=== PATIENT | male | born 1945 | race Caucasian/White ===

== ENCOUNTER 2020-02-28 16:34 | Outpatient (CLI) | payer MEDICARE, OTHER | END 2020-02-28 16:35 | disposition home or self-care (01) | LOC: COV 16:34 | PROVIDERS: ATTEND Family Medicine | DX: R53.83 Other fatigue (principal); R19.7 Diarrhea, unspecified; Z20.828 Contact with and (suspected) exposure to other viral communicable diseases ==

== ENCOUNTER 2020-04-03 16:53 | Outpatient (CLI) | payer MEDICARE, OTHER | END 2020-04-03 16:54 | disposition home or self-care (01) | LOC: COV 16:53 | PROVIDERS: ATTEND Family Medicine | DX: R05 Cough (principal); R06.02 Shortness of breath; M79.10 Myalgia, unspecified site; R53.83 Other fatigue; J02.9 Acute pharyngitis, unspecified; R19.7 Diarrhea, unspecified; R09.81 Nasal congestion; Z20.828 Contact with and (suspected) exposure to other viral communicable diseases ==

== ENCOUNTER 2020-12-11 13:09 | Outpatient (CLI) | payer MEDICARE, OTHER | END 2020-12-11 13:10 | disposition home or self-care (01) | LOC: LAB.S 13:09 | PROVIDERS: ATTEND Internal Medicine | DX: I48.91 Unspecified atrial fibrillation (principal); Z79.01 Long term (current) use of anticoagulants | CPT/HCPCS: 36416; 85610 ==

== ENCOUNTER 2021-01-04 11:47 | Outpatient (CLI) | payer MEDICARE, OTHER | END 2021-01-04 11:48 | disposition home or self-care (01) | LOC: LAB.S 11:47 | DX: I48.91 Unspecified atrial fibrillation (principal); Z79.01 Long term (current) use of anticoagulants | CPT/HCPCS: 36416; 85610 ==

== ENCOUNTER 2021-01-20 12:41 | Outpatient (CLI) | payer MEDICARE, OTHER | END 2021-01-20 12:42 | disposition home or self-care (01) | LOC: LAB.S 12:41 | DX: Z79.01 Long term (current) use of anticoagulants (principal); I48.91 Unspecified atrial fibrillation | CPT/HCPCS: 36416; 85610 ==

== ENCOUNTER 2021-02-20 14:28 | Outpatient (CLI) | payer MEDICARE, OTHER | END 2021-02-20 14:29 | disposition home or self-care (01) | LOC: LAB.S 14:28 | PROVIDERS: ATTEND Pharmacist | DX: Z79.01 Long term (current) use of anticoagulants (principal); I48.91 Unspecified atrial fibrillation | CPT/HCPCS: 36416; 85610 ==

== ENCOUNTER 2021-05-03 13:58 | Outpatient (CLI) | payer MEDICARE, OTHER | END 2021-05-03 13:59 | disposition home or self-care (01) | LOC: LAB.S 13:58 | PROVIDERS: ATTEND Pharmacist | DX: Z79.01 Long term (current) use of anticoagulants (principal); I48.91 Unspecified atrial fibrillation | CPT/HCPCS: 36416; 85610 ==

== ENCOUNTER 2021-06-03 11:02 | Outpatient (CLI) | payer MEDICARE, OTHER ==
[2021-06-03 15:28] LABS: BASOPHILS % (AUTO) 0.4 %; EOSINOPHILS # (AUTO) 0.3 10^3/uL (0.0-0.7); HCT - HEMATOCRIT 40.5 % (42.0-52.0); HGB - HEMOGLOBIN 13.1 g/dL (14.0-18.0); LYMPHOCYTES # (AUTO) 2.1 10^3/uL (1.5-3.5); LYMPHOCYTES % (AUTO) 28.4 %; MEAN CORPUSCULAR HEMOGLOBIN 29.8 pg (27.0-31.0); MEAN CORPUSCULAR HGB CONC 32.3 g/dL (32.0-36.0); MEAN CORPUSCULAR VOLUME 92.3 fL (80.0-94.0); MEAN PLATELET VOLUME 10.7 fL (7.4-11.4); MONOCYTES # (AUTO) 0.8 10^3/uL (0.0-1.0); MONOCYTES % (AUTO) 10.3 %; NEUTROPHILS # (AUTO) 4.1 10^3/uL (1.5-6.6); NEUTROPHILS % (AUTO) 56.4 %; PLT - PLATELET COUNT 260 10^3/uL (130-450); RED BLOOD COUNT 4.39 10^6/uL (4.70-6.10); RED CELL DISTRIBUTION WIDTH 13.1 % (12.0-15.0); WHITE BLOOD COUNT 7.3 x10^3/uL (4.8-10.8)
[2021-06-03 15:40] LABS: ESTIMATED AVERAGE GLUCOSE 186 mg/dL (70-100); HEMOGLOBIN A1c% 8.1 % (4.27-6.07)
[2021-06-03 15:56] LABS: ALBUMIN 4.1 g/dL (3.2-5.5); ALBUMIN/GLOBULIN RATIO 1.1 (1.0-2.2); ALKALINE PHOSPHATASE 77 IU/L (42-121); ALT ALANINE AMINOTRANSFERASE 26 IU/L (10-60); AST ASPARTATE AMINOTRANSFERASE 27 IU/L (10-42); BILIRUBIN,TOTAL 0.9 mg/dL (0.2-1.0); BUN - BLOOD UREA NITROGEN 26 mg/dL (6-20); CALCIUM 8.9 mg/dL (8.5-10.3); CARBON DIOXIDE - CO2 26 mmol/L (21-32); CHLORIDE 100 mmol/L (101-111); CHOL/HDL RATIO 4.9 (<5.0); CHOLESTEROL 142 mg/dL; CREATININE 1.3 mg/dL (0.6-1.2); GFR - MDRD 54 (>89); GLUCOSE 213 mg/dL (70-100); HDL CHOLESTEROL 29 mg/dL; LDL CHOLESTEROL,CALCULATED 43 mg/dL; LDL/HDL RATIO 1.5 (<3.6); POTASSIUM 3.8 mmol/L (3.5-5.0); SODIUM 138 mmol/L (135-145); TOTAL PROTEIN 7.8 g/dL (6.7-8.2); TRIGLYCERIDES 351 mg/dL; VLDL CHOLESTEROL 70 mg/dL
== END 2021-06-03 11:03 | disposition home or self-care (01) ==
LOC: LAB.S 11:02
PROVIDERS: ATTEND Pharmacist
DX: Z79.01 Long term (current) use of anticoagulants (principal); I48.91 Unspecified atrial fibrillation; R39.198 Other difficulties with micturition; E78.5 Hyperlipidemia, unspecified; E11.22 Type 2 diabetes mellitus with diabetic chronic kidney disease; N18.2 Chronic kidney disease, stage 2 (mild)
CPT/HCPCS: 36415; 80053; 80061; 82043; 82570; 83036; 83721; 84153; 85025; 85610

== ENCOUNTER 2021-06-14 08:00 | Outpatient (CLI) | payer MEDICARE, OTHER ==
[2021-06-14 14:48] LABS: CREATININE,URINE 154.2 mg/dL
== END 2021-06-14 23:59 ==
LOC: LAB.R 08:00
PROVIDERS: ATTEND Internal Medicine
DX: E78.5 Hyperlipidemia, unspecified (principal)
CPT/HCPCS: 82043; 82570

== ENCOUNTER 2021-06-17 11:15 | Outpatient (CLI) | payer MEDICARE, OTHER | END 2021-06-17 11:16 | disposition home or self-care (01) | LOC: LAB.S 11:15 | PROVIDERS: ATTEND Pharmacist | DX: Z79.01 Long term (current) use of anticoagulants (principal); I48.91 Unspecified atrial fibrillation | CPT/HCPCS: 36416; 85610 ==

== ENCOUNTER 2021-07-01 12:41 | Outpatient (CLI) | payer MEDICARE, OTHER | END 2021-07-01 12:42 | disposition home or self-care (01) | LOC: LAB.S 12:41 | PROVIDERS: ATTEND Pharmacist | DX: Z79.01 Long term (current) use of anticoagulants (principal); I48.91 Unspecified atrial fibrillation | CPT/HCPCS: 36416; 85610 ==

== ENCOUNTER 2021-07-28 11:51 | Outpatient (CLI) | payer MEDICARE, OTHER | END 2021-07-28 11:52 | disposition home or self-care (01) | LOC: LAB.S 11:51 | PROVIDERS: ATTEND Pharmacist | DX: Z79.01 Long term (current) use of anticoagulants (principal); I48.91 Unspecified atrial fibrillation | CPT/HCPCS: 36416; 85610 ==

== ENCOUNTER 2021-08-17 09:59 | Outpatient (CLI) | payer MEDICARE, OTHER | END 2021-08-17 10:00 | disposition home or self-care (01) | LOC: LAB.S 09:59 | PROVIDERS: ATTEND Family Medicine | DX: I48.91 Unspecified atrial fibrillation (principal); Z79.01 Long term (current) use of anticoagulants; Z86.79 Personal history of other diseases of the circulatory system | CPT/HCPCS: 36416; 85610 ==

== ENCOUNTER 2021-09-09 10:50 | Outpatient (CLI) | payer MEDICARE, OTHER | END 2021-09-09 10:51 | disposition home or self-care (01) | LOC: LAB.S 10:50 | PROVIDERS: ATTEND Family Medicine | DX: Z79.01 Long term (current) use of anticoagulants (principal); I48.91 Unspecified atrial fibrillation | CPT/HCPCS: 36416; 85610 ==

== ENCOUNTER 2021-09-30 11:33 | Outpatient (CLI) | payer MEDICARE, OTHER | END 2021-09-30 11:34 | disposition home or self-care (01) | LOC: LAB.S 11:33 | PROVIDERS: ATTEND Family Medicine | DX: Z79.01 Long term (current) use of anticoagulants (principal); I48.91 Unspecified atrial fibrillation | CPT/HCPCS: 36416; 85610 ==

== ENCOUNTER 2021-10-04 13:56 | Emergency (ER) | payer MEDICARE, OTHER ==
--- NOTE | 2021-10-04 14:14 | ED Physician Documentation ---
PD HPI HEAD INJURY - Stated complaint Stated Complaint: GLF - Chief complaint Chief Complaint: Trauma Hd/Nk - History obtained from History obtained from: Patient - Additional information Additional information: 76-year-old gentleman on warfarin had a trip and fall over a bag of mulch landing forward on [place] hitting his face and head. He also has scrapes on his left palm and forearm. He did not know the date of his last tetanus shot but per the [place] vaccine registry it was December 2015. No loss of consciousness. Review of Systems Constitutional: denies: Fever, Chills Ears: reports: Reviewed and negative Nose: reports: Reviewed and negative Throat: reports: Reviewed and negative Cardiac: reports: Reviewed and negative PD PAST MEDICAL HISTORY - Allergies Allergies/Adverse Reactions: Allergies Allergy/AdvReac Type Severity Reaction Status Date / Time No Known Drug Allergies Allergy Verified 10/04/21 14:04 PD ED PE NORMAL - Vitals Vital signs reviewed: Yes - General General: Alert and oriented X 3, No acute distress - HEENT HEENT: PERRL, EOMI, Other (There is a scrape/abrasion in the left lateral eyebrow. Some tenderness over the left zygoma. No other facial bony tenderness.) - Neck Neck: Supple, no meningeal sign, No bony TTP - Back Back: No CVA TTP, No spinal TTP - Extremities Extremities: Other (Small scrape on the left palm, nontender, small scrape on the left medial Forearm nontender) - Neuro Neuro: Alert and oriented X 3, Normal speech Eye Opening: Spontaneous Motor: Obeys Commands Verbal: Oriented GCS Score: 15 - Psych Psych: Normal mood, Normal affect Results - Vitals Vitals: Vital Signs - 24 hr 10/04/21 10/04/21 14:00 14:59 Temperature 36.2 C L Heart Rate 68 61 Respiratory 16 14 Rate Blood Pressure 123/67 132/66 H O2 Saturation 99 99 Oxygen O2 Source Room air - Labs Labs: Laboratory Tests 10/04/21 14:15 INR (Fingerstick) 2.7 H - Rads (name of study) CT of the head shows no acute intracranial abnormality. 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 Radiology: EMP read contemporaneously CT of the face is without evidence of trauma Radiology: EMP read contemporaneously Departure - Departure Disposition: 01 Home, Self Care Clinical Impression: Adequate anticoagulation on anticoagulant therapy Head injury Qualifiers: Encounter type: initial encounter Qualified Code(s): S09.90XA - Unspecified injury of head, initial encounter Facial contusion Qualifiers: Encounter type: initial encounter Qualified Code(s): S00.83XA - Contusion of other part of head, initial encounter Condition: Stable Record reviewed to determine appropriate education?: Yes Instructions: ED Head Injury Closed Comments: Your INR today was 2.7, in the desirable range. No specific change to your anticoagulation is necessary at this juncture. Return if you develop headache or other new or concerning signs.
[2021-10-04 15:00] VITALS: BP 132/66
--- NOTE | 2021-10-04 15:04 | CT Report ---
PROCEDURE: HEAD WO INDICATIONS: Facial and head injury TECHNIQUE: Noncontrast 4.5 mm thick angled axial sections acquired from the foramen magnum to the vertex. For r adiation dose reduction, the following was used: automated exposure control, adjustment of mA and/or kV according to patient size. COMPARISON: None. FINDINGS: Image quality: Excellent. CSF spaces: Basal cisterns are patent. No extra-axial fluid collections. Ventricles are normal in size and shape. Brain: There is old right occipital infarct with encephalomalacia. Moderate cerebral volume loss and periventricular white matter chronic small vessel ischemic changes. No midline shift. No intracrani al masses or hemorrhage. Salter-white matter interface is normal. Skull and face: Calvarium and visualized facial bones are intact, without suspicious lesions. Sinuses: Visualized sinuses and mastoids are clear. IMPRESSION: 1. No acute intracranial abnormalities. 2. 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 Reviewed by: Ngozi Carrington MD on 10/04/2021 2:03 PM AKDT Approved by: Ngozi Carrington MD on 10/04/2021 2:03 PM AKDT Station ID: [id number]
--- NOTE | 2021-10-04 15:13 | CT Report ---
PROCEDURE: MAXILLOFACIAL WO INDICATIONS: Facial and head injury TECHNIQUE: Noncontrast 1.5 mm thick axial images acquired from the mandible through the frontal sinuses, with co kristi and sagittal reformatting. For radiation dose reduction, the following was used: automated ex posure control, adjustment of mA and/or kV according to patient size. COMPARISON: CT Head without, 10/04/2021. FINDINGS: Image quality: Excellent. Bones and teeth: Orbital guevara are intact. Sinus guevara show no fracture or deformity. Nasal bones and septum are intact. Visualized portions of the mandible demonstrate no fractures or subluxation. Zygomatic arches are intact. Pterygoid plates are intact. Visualized portions of the skull base an d auditory canals are intact. Sinuses: Paranasal sinuses are aerated, without fluid levels, mucosal thickening, or mucoceles. Mas toid air cells are aerated. Soft tissues: No edema, masses, or fluid collections. No enlarged lymph nodes. No soft tissue lace rations or debris. Vascular: Visualized vascular structures appear normal in the absence of contrast. Bony vascular fo ramina and canals are intact. IMPRESSION: No facial bone fractures. Reviewed by: Ngozi Carrington MD on 10/04/2021 2:12 PM AKSOFIA Approved by: Ngozi Carrington MD on 10/04/2021 2:12 PM AKDT Station ID: [id number]
== END 2021-10-04 15:18 | disposition home or self-care (01) ==
LOC: ED 13:56
DX: S00.212A Abrasion of left eyelid and periocular area, initial encounter (principal); S00.83XA Contusion of other part of head, initial encounter; S09.90XA Unspecified injury of head, initial encounter; W01.198A Fall on same level from slipping, tripping and stumbling with subsequent striking against other object, initial encounter; Z79.01 Long term (current) use of anticoagulants
CPT/HCPCS: 85610; 99282; 99284

== ENCOUNTER 2021-10-21 10:22 | Outpatient (CLI) | payer MEDICARE, OTHER | END 2021-10-21 10:23 | disposition home or self-care (01) | LOC: LAB.S 10:22 | PROVIDERS: ATTEND Family Medicine | DX: Z79.01 Long term (current) use of anticoagulants (principal); I48.91 Unspecified atrial fibrillation | CPT/HCPCS: 36416; 85610 ==

== ENCOUNTER 2021-11-18 09:49 | Outpatient (CLI) | payer MEDICARE, OTHER | END 2021-11-18 09:50 | disposition home or self-care (01) | LOC: LAB.S 09:49 | PROVIDERS: ATTEND Family Medicine | DX: I48.91 Unspecified atrial fibrillation (principal); Z79.01 Long term (current) use of anticoagulants | CPT/HCPCS: 36416; 85610 ==

== ENCOUNTER 2021-12-26 18:21 | Emergency (ER) | payer MEDICARE, OTHER ==
[2021-12-26] MEDS ORDERED: SODIUM CHLORIDE 0.9% 1,000 ML IV STA (18:34)
[2021-12-26] MEDS ORDERED: HYDROmorphone 1 MG/ML CARPUJECT IVP STA (18:34)
--- NOTE | 2021-12-26 18:36 | ED Physician Documentation ---
PD HPI ABD PAIN - Stated complaint Stated Complaint: LT ABDOMINAL PX - Chief complaint Chief Complaint: Abd Pain - History obtained from History obtained from: Patient - Additional information Additional information: 76-year-old gentleman with history of renal colic presents with a day or 2 of left flank and left lower quadrant pain consistent with prior episodes of renal colic. He has had several stones in the past but never needed stone retrieval or lithotripsy. Denies fevers with this, no urinary complaints or nausea. He has been somewhat constipated but did have bowel movement today. Review of Systems Ten Systems: 10 systems reviewed and negative Constitutional: reports: Chills. denies: Fever Nose: denies: Rhinorrhea / runny nose, Congestion Cardiac: denies: Chest pain / pressure, Palpitations Respiratory: denies: Dyspnea, Cough GI: reports: Abdominal Pain. denies: Nausea, Vomiting PD PAST MEDICAL HISTORY - Present Medications Home Medications: Ambulatory Orders Medication Instructions Recorded Confirmed Ammonium Lactate 1 applic TOP DAILY 12/26/21 12/26/21 Apixaban [Eliquis] 5 mg ORAL BID 12/26/21 12/26/21 Atorvastatin Calcium 40 mg PO HS 12/26/21 12/26/21 Fluoxetine HCl [Prozac] 20 mg PO DAILY 12/26/21 12/26/21 Gabapentin [Neurontin] 300 mg PO TID 12/26/21 12/26/21 Metformin HCl [Metformin ER 500 mg PO DAILY 12/26/21 12/26/21 Osmotic] Oxycodone HCl/Acetaminophen 1 - 2 each PO Q6H PRN #14 tablet 12/26/21 [Percocet 5-325 mg Tablet] Tamsulosin [Flomax] 0.4 mg PO DAILY #14 cap 12/26/21 - Allergies Allergies/Adverse Reactions: Allergies Allergy/AdvReac Type Severity Reaction Status Date / Time No Known Drug Allergies Allergy Verified 12/26/21 18:28 PD ED PE NORMAL - Vitals Vital signs reviewed: Yes - General General: Alert and oriented X 3, No acute distress - HEENT HEENT: PERRL, EOMI - Neck Neck: Supple, no meningeal sign, No bony TTP - Cardiac Cardiac: RRR, No murmur - Respiratory Respiratory: No respiratory distress, Clear bilaterally - Abdomen Abdomen: Non tender - Derm Derm: Normal color, Warm and dry - Extremities Extremities: No edema, No calf tenderness / cord - Neuro Neuro: Alert and oriented X 3, Normal speech Results - Vitals Vitals: Vital Signs - 24 hr 12/26/21 12/26/21 12/26/21 18:26 18:53 19:15 Temperature 36.7 C Heart Rate 74 73 70 Respiratory 16 18 16 Rate Blood Pressure 161/62 H 148/70 H 156/74 H O2 Saturation 96 95 99 Oxygen O2 Source Room air - Labs Labs: Laboratory Tests 12/26/21 12/26/21 12/26/21 18:41 18:41 18:41 WBC 12.7 H RBC 4.47 L Hgb 13.3 L Hct 41.8 L MCV 93.5 MCH 29.8 MCHC 31.8 L RDW 13.2 Plt Count 236 MPV 10.5 Neut # (Auto) Not Reportable Lymph # (Auto) Not Reportable [place] # (Auto) Not Reportable Eos # (Auto) Not Reportable Baso # (Auto) Not Reportable Absolute Nucleated RBC Not Reportable Total Counted 100 Band Neuts % (Manual) 0 Reactive Lymphs % (Man) 3 Abnorm Lymph % (Manual) 0 Nucleated RBC % Not Reportable Neutrophils # (Manual) 9.8 H Lymphocytes # (Manual) 2.0 Monocytes # (Manual) 0.9 Eosinophils # (Manual) 0.0 Basophils # (Manual) 0.0 Differential Comment MANUAL DIFFERENTIAL Manual Slide Review Indicated Platelet Estimate NORMAL (130-450,000) Platelet Morphology NORMAL APPEARANCE RBC Morph Micro Appear NORMAL APPEARANCE PT 12.9 H INR 1.2 Sodium 135 Potassium 4.4 Chloride 99 L Carbon Dioxide 27 Anion Gap 9.0 BUN 29 H Creatinine 1.6 H Estimated GFR (MDRD) 42 L Glucose 212 H Calcium 9.7 Total Bilirubin 1.4 H AST 20 ALT 21 Alkaline Phosphatase 64 Total Protein 7.8 Albumin 4.4 Globulin 3.4 Albumin/Globulin Ratio 1.3 Urine Color Urine Clarity Urine pH Ur Specific [place] Urine Protein Urine Glucose (UA) Urine Ketones Urine Occult Blood Urine Nitrite Urine Bilirubin Urine Urobilinogen Ur Leukocyte Esterase Urine RBC Urine WBC Ur Squamous Epith Cells Urine Bacteria Ur Microscopic Review Urine Culture Comments 12/26/21 19:31 WBC RBC Hgb Hct MCV MCH MCHC RDW Plt Count MPV Neut # (Auto) Lymph # (Auto) [place] # (Auto) Eos # (Auto) Baso # (Auto) Absolute Nucleated RBC Total Counted Band Neuts % (Manual) Reactive Lymphs % (Man) Abnorm Lymph % (Manual) Nucleated RBC % Neutrophils # (Manual) Lymphocytes # (Manual) Monocytes # (Manual) Eosinophils # (Manual) Basophils # (Manual) Differential Comment Manual Slide Review Platelet Estimate Platelet Morphology RBC Morph Micro Appear PT INR Sodium Potassium Chloride Carbon Dioxide Anion Gap BUN Creatinine Estimated GFR (MDRD) Glucose Calcium Total Bilirubin AST ALT Alkaline Phosphatase Total Protein Albumin Globulin Albumin/Globulin Ratio Urine Color YELLOW Urine Clarity HAZY Urine pH 5.5 Ur Specific [place] 1.020 Urine Protein TRACE Urine Glucose (UA) 100 H Urine Ketones NEGATIVE Urine Occult Blood LARGE H Urine Nitrite NEGATIVE Urine Bilirubin NEGATIVE Urine Urobilinogen 0.2 (NORMAL) Ur Leukocyte Esterase NEGATIVE Urine RBC TNTC H Urine WBC 4-5 Ur Squamous Epith Cells NONE SEEN Urine Bacteria Few Ur Microscopic Review INDICATED Urine Culture Comments NOT INDICATED PD MEDICAL DECISION MAKING - ED course ED course: 76-year-old gentleman with complicated medical history including stem cell transplant for Sjogren's disease and anticoagulation presents with renal colic and is found to have a 7 mm left ureteral stone without evidence of UTI. He was pain-free after medication here. He was given a copy of his CAT scan on CD to aid in follow-up as it is more likely than not that he will need urologic procedure. Departure - Departure Disposition: 01 Home, Self Care Clinical Impression: Renal colic Condition: Good Record reviewed to determine appropriate education?: Yes Instructions: ED Stone Renal W Colic Prescriptions: Tamsulosin [Flomax] 0.4 mg PO DAILY #14 cap Oxycodone HCl/Acetaminophen [Percocet 5-325 mg Tablet] 1 - 2 each PO Q6H PRN #14 tablet PRN Reason: pain Comments: You are seen today for an obstructing 7 mm left ureteral stone. As discussed, I think you will probably need to follow-up with urologist given the size. We are giving you some pain medication and other medication to help with pass faster in the meantime. Given your complicated previous medical history, I would recommend calling [facility] first for consideration for intervention down there, you could also talk with your primary care physician about a more local urologist, but I do wonder given your previous health issues if a community urologist would handle your case. I sent your prescriptions electronically to [facility] in [place]. I am prescribing a short course of narcotic pain medication for you. These are potentially dangerous and addictive medications that should be used carefully. These medications may constipate you. Take an hazd-bfu-aeyozat stool softener (docusate) twice daily with plenty of water while taking these medications. If you go 24 hours without a bowel movement, take hktu-whn-[id number] miralax, per package instructions. Do not drink or drive while taking these medications. If you received narcotic or sedating medications while in the emergency department, do not drive for 24 hours. Store this medication in a safe, secure place and out of reach of children. It is a violation of federal law to give or sell this medication to another person or to use in a manner other than prescribed. The ED will not refill narcotic prescriptions, including prescriptions lost or stolen. To dispose of unwanted medications: 1. [facility] at [address] in [place] has a medication drop box. They accept prescription medications (in pill form) Monday through Monday 9:00 a.m. to 5:00 p.m. 2. [facility] accepts prescription medications (in pill form only) for disposal year round. Call for more information. 3. Contact the [facility] for the next [facility] sponsored prescription dr erendira collection event. , [phone], or [phone]; Note that many narcotic pain relievers also contain Tylenol/acetaminophen. Please ensure that your total dose of acetaminophen from all sources does not exceed 3 g (3000 mg) per day.
[2021-12-26 18:54] LABS: BASOPHILS % (AUTO) 0.2 %; EOSINOPHILS % (AUTO) 1.3 %; HCT - HEMATOCRIT 41.8 % (42.0-52.0); HGB - HEMOGLOBIN 13.3 g/dL (14.0-18.0); LYMPHOCYTES % (AUTO) 14.3 %; MEAN CORPUSCULAR HEMOGLOBIN 29.8 pg (27.0-31.0); MEAN CORPUSCULAR HGB CONC 31.8 g/dL (32.0-36.0); MEAN CORPUSCULAR VOLUME 93.5 fL (80.0-94.0); MEAN PLATELET VOLUME 10.5 fL (7.4-11.4); MONOCYTES % (AUTO) 13.2 %; NEUTROPHILS % (AUTO) 70.6 %; PLT - PLATELET COUNT 236 10^3/uL (130-450); RED BLOOD COUNT 4.47 10^6/uL (4.70-6.10); RED CELL DISTRIBUTION WIDTH 13.2 % (12.0-15.0); WHITE BLOOD COUNT 12.7 x10^3/uL (4.8-10.8)
[2021-12-26 18:55] LABS: SLIDE REVIEW? Indicated
[2021-12-26 18:56] LABS: ABNORMAL LYMPHS % (MANUAL) 0 %; BAND NEUTROPHILS % (MANUAL) 0 %; INR 1.2 (0.8-1.2); PT - PROTHROMBIN TIME 12.9 secs (9.9-12.6)
[2021-12-26 19:01] LABS: ALBUMIN 4.4 g/dL (3.2-5.5); ALBUMIN/GLOBULIN RATIO 1.3 (1.0-2.2); BILIRUBIN,TOTAL 1.4 mg/dL (0.2-1.0); CALCIUM 9.7 mg/dL (8.5-10.3); CREATININE 1.6 mg/dL (0.6-1.2); POTASSIUM 4.4 mmol/L (3.5-5.0); TOTAL PROTEIN 7.8 g/dL (6.7-8.2)
[2021-12-26 19:14] LABS: DIFFERENTIAL COMMENT MANUAL DIFFERENTIAL; LYMPHOCYTES % (MANUAL) 13 %; MONOCYTES # (MANUAL) 0.9 10^3/uL (0.0-1.0); NEUTROPHILS # (MANUAL) 9.8 10^3/uL (1.5-6.6); PLATELET ESTIMATE, MANUAL NORMAL (130-450,000) (NORMAL); PLATELET MORPHOLOGY NORMAL APPEARANCE (NORMAL); RBC MORPHOLOGY (MULTIPLE) NORMAL APPEARANCE (NORMAL); REACTIVE LYMPHS % (MANUAL) 3 %
[2021-12-26 19:37] LABS: BILIRUBIN,URINE NEGATIVE (NEGATIVE); GLUCOSE, URINE (UA) 100 mg/dL (NEGATIVE); KETONES,URINE (UA) NEGATIVE (NEGATIVE); LEUKOCYTE ESTERASE, URINE NEGATIVE (NEGATIVE); NITRITE,URINE NEGATIVE (NEGATIVE); OCCULT BLOOD,URINE LARGE (NEGATIVE); PH,URINE 5.5 PH (5.0-7.5); PROTEIN,URINE TRACE mg/dL (NEGATIVE); UROBILINOGEN,URINE 0.2 (NORMAL) E.U./dL (NORMAL)
[2021-12-26 19:40] LABS: CLARITY,URINE HAZY (CLEAR)
[2021-12-26 19:47] LABS: BACTERIA,URINE Few /HPF (None Seen); RBC,URINE TNTC /HPF (0-5); SQUAMOUS EPITHELIAL CELL,UR NONE SEEN (<= Few)
--- NOTE | 2021-12-26 20:02 | CT Report ---
PROCEDURE: Abdomen/Pelvis WO INDICATIONS: L flank pain TECHNIQUE: Noncontrast 5 mm thick sections acquired from the diaphragms to the symphysis. 5 mm coronal and sagi ttal reformats were then performed. For radiation dose reduction, the following was used: automated exposure control, adjustment of mA and/or kV according to patient size. COMPARISON: None. FINDINGS: Image quality: Excellent. ABDOMEN: Lung bases: Lung bases are clear. Heart size is normal. Solid organs: Liver and spleen are normal in size. Gallbladder is surgically absent Pancreas is no rmal in contours. No adrenal nodules. Punctate nonobstructing right renal stones are present measuri ng up to 3 mm. No hydronephrosis. No periureteral or perinephric stranding. Right ureter is normal in course and caliber. There is moderate left hydroureteronephrosis secondary to an obstructing 7 mm mi d left ureteral stone which measures approximately 750 Hounsfield units. No perinephric or periureter al stranding. Tiny punctate left renal stone is also noted measuring approximately 1 to 2 mm in size. No urinary bladder stones seen. Peritoneum and bowel: Unenhanced bowel loops demonstrate normal wall thickness and caliber. No free fluid or air. Nodes and vessels: No retroperitoneal or mesenteric adenopathy by size criteria. Aorta and inferior vena cava are normal in caliber. Atherosclerosis. Miscellaneous: No ventral hernias. PELVIS: Genitourinary: Bladder wall thickness is normal. Miscellaneous: No inguinal hernias or adenopathy. Bones: No suspicious bony lesions. No acute vertebral body compression fractures. IMPRESSION: 1. Obstructing 7 mm mid left ureteral stone with associated moderate left hydroureteronephrosis. 2. There are small nonobstructing right renal stones measuring up to 3 mm. No hydronephrosis. 3. Atherosclerosis. 4. Status post cholecystectomy. Reviewed by: Morales Allen MD on 12/26/2021 8:01 PM PDT Approved by: Moralse Allen MD on 12/26/2021 8:01 PM PDT Station ID: [id number]
[2021-12-26 20:40] VITALS: BP 153/66
[2021-12-26] MEDS ORDERED: oxyCODONE/ACET 5/325 Prepack 4 PO STA (20:40)
== END 2021-12-26 20:38 | disposition home or self-care (01) ==
LOC: ED 18:21
DX: N23 Unspecified renal colic (principal)
CPT/HCPCS: 36415; 74176; 80053; 81001; 85025; 85610; 96374; 99284; J1170; 81003; 87086

== ENCOUNTER 2022-07-04 14:33 | Outpatient (CLI) | payer MEDICARE, OTHER | END 2022-07-04 14:34 | disposition home or self-care (01) | LOC: LAB 14:33 | PROVIDERS: ATTEND Student in an Organized Health Care Education/Training Program | DX: Z86.010 Personal history of colon polyps (principal); Z20.822 Contact with and (suspected) exposure to COVID-19 ==

== ENCOUNTER 2022-07-06 20:55 | Outpatient (CLI) | payer MEDICARE, OTHER | END 2022-07-06 20:56 | disposition EMS.NT | LOC: EMS 20:55 | DX: R68.83 Chills (without fever) (principal) ==

== ENCOUNTER 2023-03-08 23:18 | Emergency (ER) | payer MEDICARE, OTHER ==
--- NOTE | 2023-03-08 23:49 | ED Physician Documentation ---
PD HPI FOCAL NEURO - Stated complaint Stated Complaint: BLURRY VISION/CONFUSION/DIZZY - Chief complaint Chief Complaint: Neuro - History obtained from History obtained from: Patient, Family () - Additional information Additional information: 77yM with pmh cva p/w vision changes, weakness, imbalance, confusion starting tonight around 9:30pm. also with dysuria this morning per his report. otherwise had been feeling normal during the day, though he had a deep cleaning with his dentist that was "stressful". denies slurring of speech or other neuro deficit that she can note. PD PAST MEDICAL HISTORY - Past Medical History Cardiovascular: High cholesterol Respiratory: Other Neuro: CVA, Seizure disorder Endocrine/Autoimmune: Type 2 diabetes : Kidney stones HEENT: Other Derm: Other - Past Surgical History Past Surgical History: Yes General: Cholecystectomy - Present Medications Home Medications: Ambulatory Orders Medication Instructions Recorded Confirmed Apixaban [Eliquis] 5 mg ORAL BID 12/26/21 03/09/23 Atorvastatin Calcium 40 mg PO HS 12/26/21 03/09/23 Fluoxetine HCl [Prozac] 20 mg PO DAILY 12/26/21 03/09/23 Gabapentin [Neurontin] 300 mg PO TID 12/26/21 03/09/23 Metformin HCl [Metformin ER 1,000 mg PO DAILY 12/26/21 03/09/23 Osmotic] Cholecalciferol [Vitamin D3] 25 mcg PO DAILY 03/09/23 03/09/23 - Allergies Allergies/Adverse Reactions: Allergies Allergy/AdvReac Type Severity Reaction Status Date / Time No Known Drug Allergies Allergy Verified 03/08/23 23:39 - Social History Does the pt smoke?: No Smoking Status: Never smoker - Immunizations Immunizations are current?: Yes PD ED PE NORMAL - Vitals Vital signs reviewed: Yes - General General: Alert and oriented X 3, No acute distress, Well developed/nourished - HEENT HEENT: Atraumatic, PERRL, EOMI, Moist mucous membranes, Pharynx benign - Neck Neck: Supple, no meningeal sign - Cardiac Cardiac: RRR - Respiratory Respiratory: No respiratory distress, Clear bilaterally - Abdomen Abdomen: Non tender, Non distended - Back Back: No CVA TTP - Derm Derm: Normal color, Warm and dry - Neuro Neuro: No motor deficit, No sensory deficit - Psych Psych: Normal mood, Normal affect Results - Vitals Vitals: Vital Signs - 24 hr 03/08/23 03/09/23 03/09/23 23:36 00:24 00:51 Temperature 36.3 C L 36.7 C Heart Rate 68 59 L 63 Respiratory 17 17 16 Rate Blood Pressure 123/67 133/58 H 140/62 H O2 Saturation 98 98 100 Oxygen O2 Source Room air - EKG (time done) 0016 EKG releavant findings:: EKG personally interpreted by author of this note. Relevant findings are: Rate: Rate (enter#) (59) Rhythm: NSR [employer]: Normal Intervals: Normal [place] QRS: Normal Ischemia: Normal ST segments - Labs Labs: Laboratory Tests 03/09/23 03/09/23 03/09/23 00:09 00:09 00:09 WBC 8.0 RBC 4.06 L Hgb 12.0 L Hct 38.4 L MCV 94.6 H MCH 29.6 MCHC 31.3 L RDW 13.3 Plt Count 247 MPV 10.7 Neut # (Auto) 4.9 Lymph # (Auto) 1.8 [place] # (Auto) 1.0 Eos # (Auto) 0.3 Baso # (Auto) 0.0 Absolute Nucleated RBC 0.00 Nucleated RBC % 0.0 PT 13.3 H INR 1.2 Sodium 140 Potassium 4.0 Chloride 105 Carbon Dioxide 28 Anion Gap 7.0 BUN 32 H Creatinine 1.4 H Estimated GFR (MDRD) 49 L Glucose 124 H Calcium 9.3 Total Bilirubin 0.9 AST 21 ALT 25 Alkaline Phosphatase 71 Total Protein 7.4 Albumin 4.5 Globulin 2.9 Albumin/Globulin Ratio 1.6 Lipase 49 PD Medical Decision Making - ED course ED course: 77yM with PMH CVA 10 years ago with residual L visual field deficit, p/w blurry vision , confusion, imbalance, and word finding difficulty tonight starting around 9:30pm. NIHSS 0. Patient not a candidate for tPA given low NIHSS but we will go ahead and call code stroke given new onset imbalance within the window and prior history of CVA - possibility of [employer] pathology therefore will order CTA head/neck. Patient has worsening anemia on labwork, which he states he is aware of given recent labwork a couple weeks ago. Declined further workup including rectal exam, requesting to leave AMA. discussed high grade stenosis of R vertebral artery which may be responsible for his symptoms but patient does not want to wait for neurosurgeon consult and would rather leave AMA. Risks of leaving including , severe disability were discussed and LINDA Sam signed AMA witness form. Patient states he and his may go to ER for further workup. CD of images and labwork were provided for them. Departure - Departure Disposition: Against Medical Advice Clinical Impression: Vertebral artery stenosis, Imbalance, Confusion, Vision changes Condition: Serious Comments: You are leaving AGAINST MEDICAL ADVICE and need to see neurology and neurosurgery emergently. 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 [facility] and [facility] have these capabilities. You need to schedule outpatient MRI of the head and neck as well. Forms: PCP List
[2023-03-09 00:15] LABS: BASOPHILS % (AUTO) 0.4 %; EOSINOPHILS # (AUTO) 0.3 10^3/uL (0.0-0.7); EOSINOPHILS % (AUTO) 3.1 %; HCT - HEMATOCRIT 38.4 % (42.0-52.0); LYMPHOCYTES # (AUTO) 1.8 10^3/uL (1.5-3.5); LYMPHOCYTES % (AUTO) 21.9 %; MEAN CORPUSCULAR HEMOGLOBIN 29.6 pg (27.0-31.0); MEAN CORPUSCULAR HGB CONC 31.3 g/dL (32.0-36.0); MEAN CORPUSCULAR VOLUME 94.6 fL (80.0-94.0); MEAN PLATELET VOLUME 10.7 fL (7.4-11.4); MONOCYTES % (AUTO) 12.6 %; NEUTROPHILS # (AUTO) 4.9 10^3/uL (1.5-6.6); NEUTROPHILS % (AUTO) 61.7 %; PLT - PLATELET COUNT 247 10^3/uL (130-450); RED BLOOD COUNT 4.06 10^6/uL (4.70-6.10); RED CELL DISTRIBUTION WIDTH 13.3 % (12.0-15.0)
[2023-03-09 00:25] LABS: INR 1.2 (0.8-1.2); PT - PROTHROMBIN TIME 13.3 secs (9.9-12.6)
[2023-03-09 00:38] LABS: ALBUMIN 4.5 g/dL (3.2-5.5); ALBUMIN/GLOBULIN RATIO 1.6 (1.0-2.2); BILIRUBIN,TOTAL 0.9 mg/dL (0.2-1.0); CALCIUM 9.3 mg/dL (8.5-10.3); CREATININE 1.4 mg/dL (0.6-1.3); TOTAL PROTEIN 7.4 g/dL (6.4-8.9)
--- NOTE | 2023-03-09 01:12 | CT Report ---
PROCEDURE: Head W/O Stroke Protocol INDICATIONS: Neuro deficit, acute, stroke suspected TECHNIQUE: Noncontrast 4.5 mm thick angled axial sections acquired from the foramen magnum to the vertex, with c oronal reformats. For radiation dose reduction, the following was used: automated exposure control, adjustment of mA and/or kV according to patient size. COMPARISON: 10/04/2021. FINDINGS: Image quality: Excellent. CSF spaces: Basal cisterns are patent. No extra-axial fluid collections. Ventricles are normal in size and shape. Brain: No midline shift. No intracranial masses or hemorrhage. There is moderate cerebral and cere bellar volume loss related to patient's age. Moderate periventricular and deep white matter chronic s mall vessel ischemic changes are seen. Old right occipital infarction with encephalomalacia is seen. Salter-white matter interface is normal. Skull and face: Calvarium and visualized facial bones are intact, without suspicious lesions. Sinuses: Visualized sinuses and mastoids are clear. IMPRESSION: 1. No acute intracranial pathology. 2. No significant changes from previous study. This study fulfills neurological imaging criteria for inclusion or exclusion of acute stroke therapie s based on available published neurological imaging guidelines. Reviewed by: Jose Reese MD on 03/09/2023 1:11 AM PDT Approved by: Jose Reese MD on 03/09/2023 1:11 AM PDT Station ID: [id number]
--- NOTE | 2023-03-09 01:18 | CT Report ---
PROCEDURE: CT Angio Head/Neck INDICATIONS: stoke code TECHNIQUE: After the administration of intravenous contrast, 1 mm thick sections acquired from the aortic arch t hrough the [place]. 3-dimensional msyuvch-fmnbyvlis-ovjsilaxii (MIP) and/or volume renderin g reformats were acquired of the central intracranial vasculature and neck separately. For radiation dose reduction, the following was used: automated exposure control, adjustment of mA and/or kV acco rding to patient size. COMPARISON: CT of the head from the same date. FINDINGS: Image quality: Diagnostic. HEAD CT: CSF Spaces: Basal cisterns are patent. No extra-axial fluid collections. Ventricles are normal in size and shape. Brain: The brain is within normal limits for age and scanning technique. No area of abnormal intrac ranial enhancement is noted. Skull and face: Calvarium and visualized facial bones appear intact, without suspicious lesions. Sinuses: Visualized sinuses and mastoids are clear. HEAD CT ANGIOGRAPHY: Anterior circulation: Intracranial internal carotid arteries are normal in size and flow. The flow within the paired anterior cerebral arteries is normal and symmetric. The flow within the middle cer ebral arteries is normal and symmetric. The anterior communicating artery is seen. No aneurysms are seen. Posterior circulation: Visualized portions of the vertebral arteries demonstrate normal caliber, and join to form a normal appearing basilar artery. Flow within the posterior cerebral arteries is norm al and symmetric. No aneurysms are seen. NECK CT ANGIOGRAPHY: Carotid system: The great vessels demonstrate a conventional anatomy as they arise from the aortic a rch. The origins of the common carotid arteries appear patent. The common carotid arteries demonstr ate normal caliber and courses. The bifurcation regions are both widely patent. The internal caroti d arteries demonstrate normal calibers and courses. Posterior circulation: The origins of the vertebral arteries both appear widely patent. There is hig h-grade stenosis involving the V4 segment of distal right vertebral artery. Left vertebral artery is normal in size. They join to form a normal appearing basilar artery. Soft tissues: Visualized neck soft tissues demonstrate no suspicious abnormalities. Bones: No suspicious bony lesions. Visualized cervical spine appears normally aligned. IMPRESSION: 1. No CT evidence of acute intracranial abnormalities. No area of abnormal intracranial enhancement. 2. No hemodynamically significant stenosis or aneurysm is seen in the visualized intracranial circula tion. 3. No hemodynamically significant stenosis or aneurysm is seen in bilateral carotid arteries. 4. 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 The estimate of stenosis included in the report of the imaging study was calculated using the NASCET method Reviewed by: Jose Ferguson MD on 03/09/2023 1:17 AM PDT Approved by: Jose Ferguson MD on 03/09/2023 1:17 AM PDT Station ID: [id number]
[2023-03-09] MEDS ORDERED: iohexoL-300 100 ML VIAL IVP ONE (01:39)
[2023-03-09 01:54] VITALS: BP 147/65; O2SAT 99
[2023-03-09] MEDS ORDERED: APIXABAN 5 MG TABLET PO STA (02:13)
== END 2023-03-09 02:24 | disposition left against medical advice (07) ==
LOC: ED 23:18
DX: I65.01 Occlusion and stenosis of right vertebral artery (principal); H53.8 Other visual disturbances; R41.0 Disorientation, unspecified; R26.89 Other abnormalities of gait and mobility; R47.02 Dysphasia; I69.312 Visuospatial deficit and spatial neglect following cerebral infarction
CPT/HCPCS: 36415; 70450; 70496; 70498; 80053; 83690; 85025; 85610; 93005; 99284; A9270; Q9967

== ENCOUNTER 2023-07-29 16:49 | Outpatient (CLI) | payer MEDICARE, OTHER | END 2023-07-29 16:50 | disposition critical access hospital (66) | LOC: EMS 16:49 | DX: R53.1 Weakness (principal); R11.2 Nausea with vomiting, unspecified; R42 Dizziness and giddiness; W01.198A Fall on same level from slipping, tripping and stumbling with subsequent striking against other object, initial encounter; Y92.012 Bathroom of single-family (private) house as the place of occurrence of the external cause; R39.198 Other difficulties with micturition; Z79.01 Long term (current) use of anticoagulants; R50.9 Fever, unspecified; R09.89 Other specified symptoms and signs involving the circulatory and respiratory systems; R17 Unspecified jaundice | CPT/HCPCS: A0425; A0427 ==

== ENCOUNTER 2023-07-29 17:12 | Emergency (ER) | payer MEDICARE, OTHER ==
[2023-07-29 17:25] LABS: BASOPHILS % (AUTO) 0.2 %; EOSINOPHILS % (AUTO) 0.1 %; HCT - HEMATOCRIT 38.3 % (42.0-52.0); HGB - HEMOGLOBIN 12.4 g/dL (14.0-18.0); MEAN CORPUSCULAR HEMOGLOBIN 29.5 pg (27.0-31.0); MEAN CORPUSCULAR HGB CONC 32.4 g/dL (32.0-36.0); MEAN CORPUSCULAR VOLUME 91.2 fL (80.0-94.0); MEAN PLATELET VOLUME 10.3 fL (7.4-11.4); NEUTROPHILS % (AUTO) 74.2 %; PLT - PLATELET COUNT 238 10^3/uL (130-450); RED CELL DISTRIBUTION WIDTH 13.2 % (12.0-15.0); WHITE BLOOD COUNT 19.1 x10^3/uL (4.8-10.8)
[2023-07-29 17:30] LABS: ABNORMAL LYMPHS % (MANUAL) 0 %
[2023-07-29 17:39] LABS: ALBUMIN 4.1 g/dL (3.2-5.5); ALBUMIN/GLOBULIN RATIO 1.2 (1.0-2.2); ALKALINE PHOSPHATASE 65 IU/L (42-121); ALT ALANINE AMINOTRANSFERASE 18 IU/L (10-60); AST ASPARTATE AMINOTRANSFERASE 15 IU/L (10-42); BILIRUBIN,TOTAL 3.6 mg/dL (0.2-1.0); BUN - BLOOD UREA NITROGEN 27 mg/dL (6-20); CALCIUM 9.3 mg/dL (8.5-10.3); CARBON DIOXIDE - CO2 25 mmol/L (21-32); CHLORIDE 96 mmol/L (101-111); CREATININE 1.6 mg/dL (0.6-1.3); GFR - MDRD 42 (>89); GLUCOSE 268 mg/dL (74-104); POTASSIUM 4.2 mmol/L (3.5-4.5); SODIUM 131 mmol/L (135-145); TOTAL PROTEIN 7.4 g/dL (6.4-8.9)
[2023-07-29 17:43] LABS: LIPASE < 10 U/L (11-82)
[2023-07-29] MEDS: SODIUM CHLORIDE 0.9% 1,000 ML IV STA ×2 (17:44→19:52)
[2023-07-29 17:46] LABS: BAND NEUTROPHILS % (MANUAL) 4 %; LYMPHOCYTES # (MANUAL) 2.3 10^3/uL (1.5-3.5); LYMPHOCYTES % (MANUAL) 12 %; MONOCYTES # (MANUAL) 3.6 10^3/uL (0.0-1.0); NEUTROPHILS # (MANUAL) 13.2 10^3/uL (1.5-6.6)
[2023-07-29 17:47] LABS: DIFFERENTIAL COMMENT MANUAL DIFFERENTIAL; PLATELET ESTIMATE, MANUAL NORMAL (130-450,000) (NORMAL); PLATELET MORPHOLOGY NORMAL APPEARANCE (NORMAL); RBC MORPHOLOGY (MULTIPLE) NORMAL APPEARANCE (NORMAL)
--- NOTE | 2023-07-29 17:49 | ED Physician Documentation ---
PD HPI HEAD INJURY - Stated complaint Stated Complaint: DIZZY/GLF - Chief complaint Chief Complaint: Trauma Hd/Nk - History obtained from History obtained from: Patient, EMS - History of Present Illness Mechanism of head injury: Fell Pain level max: 3 Pain level now: 0 Location of injury: Back Quality of pain: Pain, Aching, Dull Associated symptoms: LOC. No: AMS, Amnesia, Nausea / vomiting, Neck pain, Paresthesias, Seizures, Ear drainage, Nasal drainage Symptoms improve with: Rest Symptoms worsen with: Palpation, Movement Contributing factors: Anticoagulated - Additional information Additional information: Patient is a 78-year-old male who presents to the emergency department stating that he has not been eating and drinking well over the past few days, states he just is not hungry. He denies any abdominal pain, nausea or vomiting. He states that he felt lightheaded when he stood up today, fell backwards striking his head on a cabinet. He is on Eliquis for "strokelike symptoms". He states he does not have a history of atrial fibrillation. States had a mild headache initially but that has since resolved. Review of Systems Constitutional: denies: Fever, Chills Respiratory: denies: Cough GI: denies: Nausea, Vomiting, Diarrhea, Hematemesis, Bloody / black stool : denies: Dysuria Skin: denies: Rash Musculoskeletal: denies: Neck pain, Back pain PD PAST MEDICAL HISTORY - Past Medical History Past Medical History: Yes Cardiovascular: High cholesterol Respiratory: Other Neuro: CVA, Seizure disorder Endocrine/Autoimmune: Type 2 diabetes GI: GERD : Kidney stones HEENT: Other Musculoskeletal: Other Derm: Other - Past Surgical History Past Surgical History: Yes General: Cholecystectomy - Present Medications Home Medications: Ambulatory Orders Medication Instructions Recorded Confirmed Apixaban [Eliquis] 5 mg ORAL BID 12/26/21 07/29/23 Atorvastatin Calcium 40 mg PO HS 12/26/21 07/29/23 Fluoxetine HCl [Prozac] 20 mg PO DAILY 12/26/21 07/29/23 Gabapentin [Neurontin] 300 mg PO TID 12/26/21 07/29/23 Metformin HCl [Metformin ER 1,000 mg PO DAILY 12/26/21 07/29/23 Osmotic] - Allergies Allergies/Adverse Reactions: Allergies Allergy/AdvReac Type Severity Reaction Status Date / Time No Known Drug Allergies Allergy Verified 07/29/23 17:51 - Social History Does the pt smoke?: No Smoking Status: Never smoker Does the pt drink ETOH?: No Does the pt have substance abuse?: No - Immunizations Immunizations are current?: Yes PD ED PE NORMAL - Vitals Vital signs reviewed: Yes - General General: Alert and oriented X 3, No acute distress - HEENT HEENT: Atraumatic, PERRL, EOMI, Ears normal, Other (dry lips and tongue) - Neck Neck: Supple, no meningeal sign, No bony TTP - Cardiac Cardiac: RRR, Strong equal pulses - Respiratory Respiratory: No respiratory distress, Clear bilaterally - Abdomen Abdomen: Soft, Non tender, Non distended - Back Back: No spinal TTP - Derm Derm: Warm and dry - Extremities Extremities: No deformity, No tenderness to palpate, Normal ROM s pain - Neuro Neuro: Alert and oriented X 3, prison psychiatrist 2-12 intact, No motor deficit, No sensory deficit, Normal speech Eye Opening: Spontaneous Motor: Obeys Commands Verbal: Oriented GCS Score: 15 - Psych Psych: Normal mood, Normal affect Results - Vitals Vitals: Vital Signs - 24 hr 07/29/23 07/29/23 07/29/23 17:18 19:20 20:38 Temperature 37.5 C Heart Rate 88 77 83 Respiratory 16 24 15 Rate Blood Pressure 122/81 H 112/58 L O2 Saturation 95 97 97 Oxygen O2 Source Room air - Labs Labs: Laboratory Tests 07/29/23 07/29/23 07/29/23 17:16 17:16 17:54 WBC 19.1 H RBC 4.20 L Hgb 12.4 L Hct 38.3 L MCV 91.2 MCH 29.5 MCHC 32.4 RDW 13.2 Plt Count 238 MPV 10.3 Neut # (Auto) Not Reportable Lymph # (Auto) Not Reportable [place] # (Auto) Not Reportable Eos # (Auto) Not Reportable Baso # (Auto) Not Reportable Absolute Nucleated RBC Not Reportable Total Counted 100 Band Neuts % (Manual) 4 Abnorm Lymph % (Manual) 0 Nucleated RBC % Not Reportable Neutrophils # (Manual) 13.2 H Lymphocytes # (Manual) 2.3 Monocytes # (Manual) 3.6 H Eosinophils # (Manual) 0.0 Basophils # (Manual) 0.0 Differential Comment MANUAL DIFFERENTIAL Platelet Estimate NORMAL (130-450,000) Platelet Morphology NORMAL APPEARANCE RBC Morph Micro Appear NORMAL APPEARANCE Sodium 131 L Potassium 4.2 Chloride 96 L Carbon Dioxide 25 Anion Gap 10.0 BUN 27 H Creatinine 1.6 H Estimated GFR (MDRD) 42 L Glucose 268 H Calcium 9.3 Total Bilirubin 3.6 H AST 15 ALT 18 Alkaline Phosphatase 65 Total Protein 7.4 Albumin 4.1 Globulin 3.3 Albumin/Globulin Ratio 1.2 Lipase < 10 L Urine Color Urine Clarity Urine pH Ur Specific [place] Urine Protein Urine Glucose (UA) Urine Ketones Urine Occult Blood Urine Nitrite Urine Bilirubin Urine Urobilinogen Ur Leukocyte Esterase Ur Microscopic Review Urine Culture Comments Nasal Adenovirus (PCR) NOT DETECTED Nasal B. parapertussis DNA (PCR) NOT DETECTED Nasal Coronavir 229E PCR NOT DETECTED Nasal Coronavir HKU1 PCR NOT DETECTED Nasal Coronavir NL63 PCR NOT DETECTED Nasal Coronavir OC43 PCR NOT DETECTED Nasal Enterovir/Rhinovir PCR NOT DETECTED Nasal Influenza B PCR NOT DETECTED Nasal Influenza A PCR NOT DETECTED Nasal Parainfluen 1 PCR NOT DETECTED Nasal Parainfluen 2 PCR NOT DETECTED Nasal Parainfluen 3 PCR NOT DETECTED Nasal Parainfluen 4 PCR NOT DETECTED Nasal RSV (PCR) NOT DETECTED Nasal B.pertussis DNA PCR NOT DETECTED Nasal C.pneumoniae (PCR) NOT DETECTED [place] Human Metapneumo PCR NOT DETECTED Nasal M.pneumoniae (PCR) NOT DETECTED Nasal SARS-CoV-2 (PCR) NOT DETECTED 07/29/23 19:23 WBC RBC Hgb Hct MCV MCH MCHC RDW Plt Count MPV Neut # (Auto) Lymph # (Auto) [place] # (Auto) Eos # (Auto) Baso # (Auto) Absolute Nucleated RBC Total Counted Band Neuts % (Manual) Abnorm Lymph % (Manual) Nucleated RBC % Neutrophils # (Manual) Lymphocytes # (Manual) Monocytes # (Manual) Eosinophils # (Manual) Basophils # (Manual) Differential Comment Platelet Estimate Platelet Morphology RBC Morph Micro Appear Sodium Potassium Chloride Carbon Dioxide Anion Gap BUN Creatinine Estimated GFR (MDRD) Glucose Calcium Total Bilirubin AST ALT Alkaline Phosphatase Total Protein Albumin Globulin Albumin/Globulin Ratio Lipase Urine Color YELLOW Urine Clarity CLEAR Urine pH 6.0 Ur Specific [place] 1.015 Urine Protein TRACE Urine Glucose (UA) 250 H Urine Ketones NEGATIVE Urine Occult Blood NEGATIVE Urine Nitrite NEGATIVE Urine Bilirubin NEGATIVE Urine Urobilinogen 0.2 (NORMAL) Ur Leukocyte Esterase NEGATIVE Ur Microscopic Review NOT INDICATED Urine Culture Comments NOT INDICATED Nasal Adenovirus (PCR) Nasal B. parapertussis DNA (PCR) Nasal Coronavir 229E PCR Nasal Coronavir HKU1 PCR Nasal Coronavir NL63 PCR Nasal Coronavir OC43 PCR Nasal Enterovir/Rhinovir PCR Nasal Influenza B PCR Nasal Influenza A PCR Nasal Parainfluen 1 PCR Nasal Parainfluen 2 PCR Nasal Parainfluen 3 PCR Nasal Parainfluen 4 PCR Nasal RSV (PCR) Nasal B.pertussis DNA PCR Nasal C.pneumoniae (PCR) [place] Human Metapneumo PCR Nasal M.pneumoniae (PCR) Nasal SARS-CoV-2 (PCR) - [place]ads (name of study) head CT Relevant Findings:: Final report received, See rad report cervical spine CT Relevant Findings:: Final report received, See rad report PD Medical Decision Making - ED course Complexity details: reviewed results, re-evaluated patient, considered differential, d/w patient, d/w family ED course: 78-year-old male status post a fall today. He had positive orthostatic hypotension with EMS. Received IV fluids en route. Head CT, cervical spine CT and chest x-ray do not show any acute abnormalities. Respiratory PCR is negative. Does have mild hyponatremia that should have resolved with the IV fluids. Also mild hypochloremia. Mild elevated bilirubin but otherwise normal LFTs. Does have an elevated white blood cell count. No abdominal pain. No cough. No congestion. No fevers. We will have him recheck this with his doctor. Patient is very well-appearing, nontoxic. No focal neurological deficits. Ambulating without difficulty here. Orthostatic hypotension resolved. recommend increase fluid intake at home. He is eating and drinking without difficulty here. Patient counseled regarding signs and symptoms for which I believe and urgent re-evaluation would be necessary. Patient with good understanding of and agreement to plan and is comfortable going home at this time This document was made in part using voice recognition software. While efforts are made to proofread this document, sound alike and grammatical errors may occur. Departure - Departure Disposition: 01 Home, Self Care Clinical Impression: Dehydration, Orthostatic hypotension Closed head injury Qualifiers: Encounter type: initial encounter Qualified Code(s): S09.90XA - Unspecified injury of head, initial encounter Condition: Good Instructions: ED Head Injury Closed, ED Hypotension Orthostatic Follow-Up: your,doctor in 3 days [Other] Comments: You were significantly dehydrated today. You are given several liters of IV fluid. You do have an elevated white blood cell count, of unclear etiology, recommend this be repeated with your doctor to ensure resolution next week. Your sodium levels were also mildly low, this is consistent with dehydration as well. Your total bilirubin is mildly elevated at 3.6 but your liver function tests were otherwise normal. Your urinalysis did not show any acute abnormalities. Your head CT and cervical spine CT did not show any acute abnormalities as well. Please make sure you are drinking plenty of fluids at home. Please return if you worsen. Your bilirubin should be rechecked with your doctor next week as well. Forms: PCP List Discharge Date/Time: 07/29/23 20:39
[2023-07-29 18:52] LABS: B. PARAPERTUSSIS- RESP PCR PAN NOT DETECTED; B. PERTUSSIS- RESP PCR PANEL NOT DETECTED; C. PNEUMONIAE- RESP PCR PANEL NOT DETECTED; CORONAVIRUS 229E-RESP PCR NOT DETECTED; CORONAVIRUS HKU1-RESP PCR NOT DETECTED; CORONAVIRUS NL63-RESP PCR NOT DETECTED; CORONAVIRUS OC43-RESP PCR NOT DETECTED; HUMAN METAPNEUMOVIRUS NOT DETECTED; INFLUENZA A- RESP PCR PANEL NOT DETECTED; INFLUENZA B - RESP PCR PANEL NOT DETECTED; M. PNEUMONIAE- RESP PCR PANEL NOT DETECTED; PARAINFLUENZA VIRUS 1 NOT DETECTED; PARAINFLUENZA VIRUS 2 NOT DETECTED; PARAINFLUENZA VIRUS 3 NOT DETECTED; PARAINFLUENZA VIRUS 4 NOT DETECTED; RHINOVIRUS/ENTEROVIRUS NOT DETECTED; RSV- RESP PCR PANEL NOT DETECTED; SARS-CoV-2 -RESP PCR PANEL NOT DETECTED
--- NOTE | 2023-07-29 19:09 | CT Report ---
PROCEDURE: CT cervical spine without contrast INDICATIONS: fall, neck pain TECHNIQUE: Helical axial CT of the cervical spine was obtained without contrast and reformatted in m ultiple planes. Radiation dose reduction was achieved utilizing automated exposure control or adjus tment of mA and/or kV according to patient size. COMPARISON: None. FINDINGS: Bones: No fractures or dislocations. Visualized superior ribs are intact. Disc space narrowing and posterior osteophytes in the mid cervical spine results in moderate central stenosis C5-6 and C6-7 Soft tissues: Prevertebral soft tissues are normal in thickness. No paravertebral hematomas. No ap ical pneumothoraces. IMPRESSION: No evidence of fracture or traumatic malalignment. 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
--- NOTE | 2023-07-29 19:17 | CT Report ---
PROCEDURE: Head WO INDICATIONS: fall, head injury, takes eliquis TECHNIQUE: Helical axial CT of the brain was obtained without contrast and reformatted in multiple p lanes. Radiation dose reduction was achieved using automated exposure control or adjustment of mA and /or kV according to patient size. COMPARISON: None FINDINGS: CSF spaces: Ventricles are appropriate in size and position. No hydrocephalus. Basal cisterns unre markable. Brain: No midline shift. No intracranial masses or hemorrhage. Old right occipital infarct. Skull and face: Calvarium and skull base are unremarkable without suspicious lesion. Sinuses: Visualized sinuses and mastoids are clear. IMPRESSION: Atrophy and chronic ischemic change without intracranial hemorrhage or mass effect. Old right occipital infarct Reviewed by: Trey Love MD on 07/29/2023 6:15 PM [facility] Approved by: Trey Love MD on 07/29/2023 6:15 PM [place] Station ID: [id number]
[2023-07-29 19:28] LABS: BILIRUBIN,URINE NEGATIVE (NEGATIVE); GLUCOSE, URINE (UA) 250 mg/dL (NEGATIVE); KETONES,URINE (UA) NEGATIVE (NEGATIVE); LEUKOCYTE ESTERASE, URINE NEGATIVE (NEGATIVE); NITRITE,URINE NEGATIVE (NEGATIVE); OCCULT BLOOD,URINE NEGATIVE (NEGATIVE); PROTEIN,URINE TRACE mg/dL (NEGATIVE); UROBILINOGEN,URINE 0.2 (NORMAL) E.U./dL (NORMAL)
[2023-07-29 19:29] LABS: CLARITY,URINE CLEAR (CLEAR)
[2023-07-29 19:30] VITALS: O2SAT 97
[2023-07-29 20:43] VITALS: BP 112/58
== END 2023-07-29 20:39 | disposition home or self-care (01) ==
LOC: EDUNIT# → ED 17:12
DX: S09.90XA Unspecified injury of head, initial encounter (principal); W19.XXXA Unspecified fall, initial encounter; E86.0 Dehydration; I95.1 Orthostatic hypotension; E11.9 Type 2 diabetes mellitus without complications; Z79.84 Long term (current) use of oral hypoglycemic drugs
CPT/HCPCS: 36415; 80053; 81001; 81003; 83690; 85025; 87086; 87633; 96360; 99284

== ENCOUNTER 2023-08-03 12:38 | Outpatient (CLI) | payer MEDICARE, OTHER ==
[2023-08-03 14:39] LABS: BASOPHILS # (AUTO) 0.1 10^3/uL (0.0-0.1); BASOPHILS % (AUTO) 0.4 %; EOSINOPHILS # (AUTO) 0.2 10^3/uL (0.0-0.7); EOSINOPHILS % (AUTO) 1.8 %; HCT - HEMATOCRIT 38.7 % (42.0-52.0); HGB - HEMOGLOBIN 12.3 g/dL (14.0-18.0); LYMPHOCYTES # (AUTO) 1.4 10^3/uL (1.5-3.5); LYMPHOCYTES % (AUTO) 11.9 %; MEAN CORPUSCULAR HEMOGLOBIN 29.5 pg (27.0-31.0); MEAN CORPUSCULAR HGB CONC 31.8 g/dL (32.0-36.0); MEAN CORPUSCULAR VOLUME 92.8 fL (80.0-94.0); MONOCYTES # (AUTO) 1.2 10^3/uL (0.0-1.0); MONOCYTES % (AUTO) 10.4 %; NEUTROPHILS # (AUTO) 8.5 10^3/uL (1.5-6.6); NEUTROPHILS % (AUTO) 74.6 %; PLT - PLATELET COUNT 317 10^3/uL (130-450); RED BLOOD COUNT 4.17 10^6/uL (4.70-6.10); RED CELL DISTRIBUTION WIDTH 13.5 % (12.0-15.0); WHITE BLOOD COUNT 11.4 x10^3/uL (4.8-10.8)
[2023-08-03 15:12] LABS: THYROID STIMULATING HORMONE 5.71 uIU/mL (0.34-5.60)
[2023-08-03 15:34] LABS: ALBUMIN 3.8 g/dL (3.2-5.5); BILIRUBIN,DIRECT 0.22 mg/dL (0.03-0.18); BILIRUBIN,TOTAL 1.3 mg/dL (0.2-1.0); CREATININE 1.5 mg/dL (0.6-1.3); MAGNESIUM 1.5 mg/dL (1.7-2.3); PHOSPHORUS 3.2 mg/dL (2.5-5.0); POTASSIUM 3.9 mmol/L (3.5-4.5); TOTAL PROTEIN 7.5 g/dL (6.4-8.9)
[2023-08-04 15:30] LABS: BILIRUBIN,URINE NEGATIVE (NEGATIVE); GLUCOSE, URINE (UA) 250 mg/dL (NEGATIVE); KETONES,URINE (UA) NEGATIVE (NEGATIVE); LEUKOCYTE ESTERASE, URINE NEGATIVE (NEGATIVE); NITRITE,URINE NEGATIVE (NEGATIVE); OCCULT BLOOD,URINE NEGATIVE (NEGATIVE); PROTEIN,URINE TRACE mg/dL (NEGATIVE); UROBILINOGEN,URINE 0.2 (NORMAL) E.U./dL (NORMAL)
[2023-08-04 15:50] LABS: CLARITY,URINE CLEAR (CLEAR)
[2023-08-04 16:32] LABS: BACTERIA,URINE Moderate /HPF (None Seen); SQUAMOUS EPITHELIAL CELL,UR NONE SEEN (<= Few)
== END 2023-08-03 12:39 | disposition home or self-care (01) ==
LOC: LAB.S 12:38
PROVIDERS: ATTEND Internal Medicine Nephrology
DX: N18.5 Chronic kidney disease, stage 5 (principal); N17.9 Acute kidney failure, unspecified
CPT/HCPCS: 36415; 80048; 80076; 81001; 83735; 84100; 84439; 84443; 85025; 87086